=== PATIENT | male | born 1985 | race Caucasian/White ===

== ENCOUNTER 2017-02-24 18:35 | Emergency (ER) | payer OTHER ==
--- NOTE | ~2017-02-24 | CT71 ---
[facility] A Service of [facility] RADIOLOGY TEXT RESULTS PATIENT: DIANELYS PEPPER LOCATION: [facility] : [birth year] UNIT #: [id number] AGE: [address]: Lion García MD SEX: M ORDER DR: [id number] [facility] [address] [place], [place] [address] [id number] MR#: [id number] Acc #: [id number] NAME: DIANELYS PEPPER : 1985 SEX: M STUDY DATE/TIME: 02/24/2017 20:29 UNIT: [facility] ROOM: STUDY DESCRIPTION: CT Head Wo Contrast Attending Physician: Lion García M.D. Ordering Physician: Lion García M.D. Primary Care Physician: No Primary Care Physician MEDICAL IMAGING REPORT This report is preliminary unless electronic signature is present EXAM Head CT without contrast 02/24/2017 HISTORY Altered mental status today fell off chair hit head, generalized headache and confusion beginning today. FINDINGS Multiple axial images were obtained from the skull base to vertex without intravenous contrast administration. This CT exam was performed with one or more of the following radiation dose reduction techniques: automatic control, adjustment of mA and/or kV according to patient size, and iterative reconstruction. The ventricles are normal in size, shape and position. There is no midline shift. There is no mass or mass effect, hemorrhage or acute infarct. There is an air-fluid level in the right maxillary sinus characteristic of right maxillary sinusitis. IMPRESSION 1. No acute intracranial abnormality. 2. Right maxillary sinusitis Dictated by... Jersey Osborne M.D. THIS IS AN ELECTRONICALLY VERIFIED REPORT Jersey Osborne M.D. at 02/25/2017 2:14 PM BRENDA/kumar TD: 02/24/2017 23:23 JOB #: [id number] MEDICAL IMAGING REPORT Page 1 of 1 COPY
[2017-02-24 20:55] LABS: AMPHETAMINE NEG (NEG); BARBITURATES NEG (NEG); BENZODIAZEPINES NEG (NEG); COCAINE NEG (NEG); MARIJUANA POS (NEG); OPIATES NEG (NEG); TRICYCLIC ANTIDEPRESSANTS NEG (NEG); U METHADONE NEG (NEG)
[2017-02-24 21:41] LABS: BLOOD UREA NITROGEN 14 mg/dL (9-23); BUN/CREATININE RATIO 15.55; CALCIUM SERUM 8.4 mg/dL (8.4-10.2); CARBON DIOXIDE 26 mmol/L (22-31); CHLORIDE 107 mmol/L (100-111); CREATININE SERUM 0.9 mg/dL (0.6-1.4); GLOM FILT RATE Estimated 113.4 mL/min (>60); GLUCOSE FASTING 89 mg/dL (70-110); SODIUM 141 mmol/L (135-145)
[2017-02-24 21:43] LABS: ALCOHOL BLOOD <5 mg/dL (0); POTASSIUM 2.9 mmol/L (3.5-5.1)
== END 2017-02-25 02:55 ==
LOC: CED 18:35
PROVIDERS: Emergency Medicine
DX: F99 Mental disorder, not otherwise specified (principal); E87.6 Hypokalemia; F17.210 Nicotine dependence, cigarettes, uncomplicated
CPT/HCPCS: 36415; 70450; 80048; 80307; 99284; 99285; G0480

== ENCOUNTER 2017-02-24 21:00 | Inpatient (IN) | payer OTHER ==
--- NOTE | ~2017-02-24 | DS ---
Unit #: [id number] #: [id number] Patient: DIANELYS PEPPER [id number] [facility] [address] [place] [address] [id number] I MR#: [id number] NAME: DIANELYS PEPPER ROOM: [facility]5 Age: 31 Sex: M Admission Date: 02/25/2017 : 1985 Discharge Date: 03/02/2017 Attending Physician: Jose Villeda M.D. Primary Care Physician: Primary Care Physician No DISCHARGE SUMMARY IDENTIFYING DATA Mr. Pepper is a 31-year-old, single, white male, who is a resident of [place], [place], and was transferred to us from [facility]. DISCHARGE DIAGNOSES Psychiatric: Schizoaffective disorder, bipolar type, most recent episode manic with psychosis. Medical: None. Stressors: Moderate psychosocial stressors. HISTORY OF PRESENT ILLNESS Please see initial psychiatric evaluation for details. PAST PSYCHIATRIC HISTORY Please see initial psychiatric evaluation for details. PAST MEDICAL HISTORY Please see initial psychiatric evaluation for details. HOSPITAL COURSE The [facility] and was oriented to the hospital environment. Routine p.r.n. medications were initiated. Upon initial presentation, the patient was seen to be acutely psychotic, agitated, hostile, paranoid, delusional indicated needed physical management and p.r.n. medications to be given and he was started on Thorazine; however, he was not showing any therapeutic response and was pacing up all night long in the sheikh, yelling and screaming and demanding to leave the hospital, showing poor insight into his situation and as such, Thorazine was changed to Seroquel and despite me having him on Seroquel t.i.d., he was not showing any therapeutic response and has needed p.r.n. medications just to keep him and others around him safe and as such, Seroquel was then increased further as he was just not able to sleep at night as well. He was taking the medications regularly. When increased his Seroquel, he was finally able to settle down and get some sleep and as such, it was decided that he will be discharged home and will continue treatment on an outpatient basis. DISCHARGE MEDICATIONS Seroquel 100 mg in the morning and in the afternoon, and 600 mg at bedtime and trazodone 100 mg at bedtime. Unit #: [id number] #: [id number] Patient: DIANELYS PEPPER DISCHARGE CONDITION Stable. PROGNOSIS Fair. Dictated by... Sindy Maciel/christopher TD: 03/02/2017 07:08 JOB #: [id number] DISCHARGE SUMMARY Page 1 of 1 X Jose Villeda MD X DISCHARGE SUMMARY
--- NOTE | ~2017-02-24 | PN ---
Unit #: [id number] #: [id number] Patient: DIANELYS PEPPER [id number] [facility] [address] [place] [address] [id number] I MR#: [id number] NAME: DIANELYS PEPPER ROOM: [facility]5 Age: 31 Sex: M Admission Date: 02/25/2017 : 1985 Attending Physician: Jose Villeda M.D. Admitting Physician: Jose Villeda M.D. Primary Care Physician: Primary Care Physician Sera ZUÑIGA PROGRESS NOTES DATE 02/28/2017 DISCUSSION Mr. Pepper is a 31-year-old, white male with mood disorder and psychosis who was seen today and chart was reviewed and case was discussed with the staff who reports the patient has been quite disorganized and with karen like symptoms and has been up all night long and has been hovering and screaming and yelling and cursing and when confronted, he was refusing to take any responsibility and was seen to be very paranoid, delusional, refusing to talk to me stating that I have camera on my phone and things are being recorded and that he just needs to get out of here and then was seen to be starting to get agitated and aggressive and hostile as such intramuscular injection of Haldol had to be given and we will continue to monitor his response. We will also adjust his medication and change his Thorazine to Seroquel. We will monitor response. Dictated by... Sindy Maciel/adolfo TD: 03/01/2017 02:10 JOB #: [id number] [facility] PROGRESS NOTES Page 1 of 1 X Jose Villeda MD PROGRESS NOTE
--- NOTE | ~2017-02-24 | PN ---
Unit #: [id number] #: [id number] Patient: DIANEYLS PEPPER [id number] [facility] [address] [place] [address] [id number] I MR#: [id number] NAME: DIANELYS PEPPER ROOM: [facility]5 Age: 31 Sex: M Admission Date: 02/25/2017 : 1985 Attending Physician: Jose Villeda M.D. Admitting Physician: Jose Villeda M.D. Primary Care Physician: Primary Care Physician Sera MCKEON NOTES DATE 02/27/2017 DISCUSSION Mr. Pepper is a 31-year-old, white male with mood disorder and psychosis was seen today and chart was reviewed and case was discussed with the staff who reported the patient has been up all night long has been pacing the hallways and as soon as he saw me he started coming to me asking me that he is ready to leave and was seen to have pressured speech, flight of ideas and was having significant difficulty comprehending as now tolerating that he is ready yet, he would state that he is just going to go pack up his stuff and then will come back and ask me all over gain what time and I will tell him that as soon as he knew about his discharge planning we will let go. He once again would say that he is going to go and get his stuff ready and would rather get excited about that and was having some difficulty comprehending. Was seen to exhibit out of control looseness of association, and flight of idea and bizarre behavior and remains impulsive and irritable and danger to himself with acute psychosis and cognitive impairment and such we will maintain him on his current medications and level of precaution while monitoring his response and make further adjustments as needed. Dictated by... Sindy Maciel/adolfo TD: 02/28/2017 01:01 JOB #: [id number] [facility] PROGRESS NOTES Page 1 of 1 X Jose Villeda MD PROGRESS NOTE
--- NOTE | ~2017-02-24 | PN ---
Unit #: [id number] #: [id number] Patient: DIANELYS PEPPER [id number] [facility] [address] [place] [address] [id number] I MR#: [id number] NAME: DIANELYS PEPPER ROOM: [facility]5 Age: 31 Sex: M Admission Date: 02/25/2017 : 1985 Attending Physician: Jose Villeda M.D. Admitting Physician: Jose Villeda M.D. Primary Care Physician: Primary Care Physician Sera ZUÑIGA PROGRESS NOTES DATE March 01, 2017 DISCUSSION Mr. Pepper is a 31-year-old white male, who was seen today and chart was reviewed and the case was discussed with the staff. He has been anxious, irritable, impulsive, restless, pacing the hallways, and hyperactive, and remains somewhat disorganized, agitated and hostile yesterday, and was given intramuscular injections of Haldol and Benadryl, as he has not slept in some time and he stated that he had a spiritual awakening and thanks me for helping him stating that gave him injection to help him sleep, and he had some spiritual awakening and now he is all ready to leave the hospital and his mood was irritable and he seemed to be quite disorganized. MENTAL STATUS EXAMINATION Young white male, who was casually dressed with fair personal hygiene and appears to be in no acute distress or discomfort. He was awake and alert with impaired attention and concentration. His mood is anxious with a congruent affect. His speech is fluent and tangential. His thought processes are disorganized with some looseness of associations and flight of ideas and paranoid ideations, and delusional behavior. His insight and judgment remain significantly impaired. TREATMENT PLAN 1. We will continue him on his current medications and treatment protocol, and will monitor his response to the medications, and make further adjustments as needed. 2. We will continue to followup. Dictated by... Sindy Maciel/davonte TD: 03/01/2017 11:54 JOB #: [id number] Unit #: [id number] #: [id number] Patient: DIANELYS PEPPER PEACURTIS PROGRESS NOTES Page 1 of 1 X Jose Villeda MD NOTE
--- NOTE | ~2017-02-24 | HP ---
Unit #: [id number] #: [id number] Patient: DIANELYS PEPPER [id number] [place] [address] [id number] I MR#: [id number] NAME: DIANELYS PEPPER ROOM: [facility] Age: 31 Sex: M Admission Date: 02/25/2017 : 1985 Attending Physician: Jose Villeda M.D. Admitting Physician: Jose Villeda M.D. Primary Care Physician: Primary Care Physician No HISTORY AND PHYSICAL HISTORY OF PRESENT ILLNESS The patient is a 31-year-old male admitted to [address] [place] [address] on 02/25/2017 for bipolar disorder with psychotic features. PAST MEDICAL HISTORY The patient denies. PAST SURGICAL HISTORY The patient denies. SOCIAL HISTORY He is disabled. He lives with roommates. He is unemployed. His tox screen was positive for marijuana but he denies any other substance abuse. FAMILY MEDICAL HISTORY Noncontributory. ALLERGIES No known drug allergies. CURRENT MEDICATIONS The patient is not on any home medications. REVIEW OF SYSTEMS CONSTITUTIONAL: No fever or chills. HEENT: Denies any sore throat, ear pain or runny nose. CARDIOVASCULAR: Denies chest pain, irregular heart rhythm or palpitations. CHEST: Denies shortness of breath or cough. No hemoptysis. GASTROINTESTINAL: Denies nausea, vomiting, diarrhea or chronic constipation. ENDOCRINE: Denies history of increased thirst or urination. No recent significant weight loss or gain. GENITOURINARY: Denies dysuria, frequency, or hematuria. SKIN: Denies any rashes. HEMATOLOGIC: Denies history of increased bleeding or bruising. MUSCULOSKELETAL: Denies any hot, swollen joints. No generalized muscle pain. NEUROLOGIC: Denies problems with vision or speech. No frequent, severe headaches. No numbness, tingling or weakness in any extremities. Denies loss of bladder or bowel control. PHYSICAL EXAM GENERAL: He is awake, alert and oriented in no acute distress. Unit #: [id number] #: [id number] Patient: DIANELYS PEPPER VITAL SIGNS: Temperature 98.3, heart rate 85, respiration 16, blood pressure 122/78. HEIGHT: 5'9". WEIGHT: 175 pounds. SKIN: He has multiple blisters on bilateral feet and a cut on the upper bridge of his nose. HEENT: Normocephalic. TMs not viewed. Oral and nasal passages clear. Conjunctivae clear. PERRLA. EOMs intact. NECK: Supple without lymphadenopathy or thyromegaly. HEART: Regular rate and rhythm without murmur. LUNGS: Clear. ABDOMEN: Soft, nontender. : Not done. EXTREMITIES: No evidence of cyanosis, clubbing or edema. Moves all without focal deficit. NEUROLOGICAL: Grossly within normal limits. Cranial Nerves: II: Visual delvalle are intact. III, IV AND : Extraocular movements are intact. Pupils are equal, round and reactive to light. V: Facial sensation is grossly normal. VII: Facial movements and expression are normal. VIII: Auditory acuity grossly intact. IX, X: Uvula is midline. Phonation is normal. XI: Patient shrugs shoulders and turns head normally. XII: Tongue protrudes in the midline. Sensory and Motor Function: Sensory and motor sensation is grossly normal. Motor: moves all extremities well. IMPRESSION Psychiatric admission. RECOMMENDATIONS Psychiatric per psychiatrist. MEDICAL: No contraindication to participate in facility activities. MEDICAL PROGNOSIS Good. MEDICAL CONDITION Stable. Dictated by... Juan Carlos Macedo/adolfo TD: 02/26/2017 04:00 JOB #: [id number] Unit #: [id number] #: [id number] Patient: DIANELYS PEPPER HISTORY AND PHYSICAL Page 1 of 1 X SANDRA NELSON APRN HISTORY AND PHYSICAL
--- NOTE | ~2017-02-24 | PN ---
Unit #: [id number] #: [id number] Patient: DIANELYS PEPPER [id number] [facility] [address] [place] [address] [id number] I MR#: [id number] NAME: DIANELYS PEPPER ROOM: [facility]5 Age: 31 Sex: M Admission Date: 02/25/2017 : 1985 Attending Physician: Jose Villeda M.D. Admitting Physician: Jose Villeda M.D. Primary Care Physician: Primary Care Physician Sera ZUÑIGA PROGRESS NOTES DATE 02/26/2017 DISCUSSION Mr. Ppeper is a 31-year-old, white male who was seen today and chart was reviewed and case was discussed with the staff. He has been anxious, withdrawn, irritable, impulsive, disorganized and exhibiting acute psychosis and bizarre behavior as well as poor frustration tolerance though he has been taking medications and tolerating them fairly well with no reported side effects. MENTAL STATUS EXAM Young white male who was casually dressed with fair personal hygiene, appears to be in no acute distress or discomfort. He was awake and alert with impaired attention and concentration. His mood was anxious and congruent affect. He denies any suicidal or homicidal ideation. His insight and judgement remains significantly impaired. TREATMENT PLAN 1. We will continue him on his current treatment protocol. We will monitor his response and make further adjustments as needed. 2. We will continue to follow up. Dictated by... Sindy Maciel/adolfo TD: 02/27/2017 21:07 JOB #: [id number] Unit #: [id number] #: [id number] Patient: DIANELYS PEPPER PROGRESS NOTES Page 1 of 1 X Jose Villeda MD PROGRESS NOTE
--- NOTE | ~2017-02-24 | PA ---
Unit #: [id number] #: [id number] Patient: DIANELYS PEPPER [id number] [facility] [address] [place] [address] [id number] I MR#: [id number] NAME: DIANELYS EPPPER ROOM: P125 Age: 31 Sex: M Admission Date: 02/25/2017 : 1985 Date of Assessment: Attending Physician: Jose Villeda M.D. Admitting Physician: Jose Villeda M.D. PSYCHIATRIC ASSESSMENT DATE OF SERVICE 02/25/2017. IDENTIFYING DATA Mr. Pepper is a 31-year-old single white male, who is a resident of [place], [place] and was transferred to us from [facility]. CHIEF COMPLAINT "So I can get me on my place and get out of here." HISTORY OF PRESENT ILLNESS Mr. Pepper is a 31-year-old white male, who presented to the emergency room at [facility] in acute psychotic state and bizarre behavior stating that "so I can get my own place and get out of here to get a psych eval to get information so we can, cousin brought me." When asked about why he is in disability, he responded with information about his father and and continued with inappropriate responses stating that he is diagnosed with PTSD, but he did not provide any information as to the nature of any trauma and ER has the same experience with the patient, though he was cooperative inappropriate. He was beginning to go to sleep. Few minutes after the evaluation staff left, he began to be loud and demanding something, it led to the point that ER physician had to put him on 72 hours hold. He was denying any auditory or visual hallucination. His drug screen was positive for cannabis only and he was seen to be exhibiting bizarre behavior and was seen to be a poor historian and as such, was medically cleared and transferred to us, and this morning on 02/25/2017 before I had a chance to evaluate him, staff called me stating that he has been exhibiting acute psychosis with agitation, aggression, and has been punching the kwon, urinating on the floors, and causing lot of disturbance and they had initially given him Thorazine without much benefit and as such, intramuscular injection of Haldol and Benadryl had to be given to cut down his psychosis and agitation and aggression as overall he remained a poor historian. SUBSTANCE ABUSE HISTORY The patient reports history of cannabis abuse, but denies any other drug abuse. PAST PSYCHIATRIC HISTORY The patient has had history of inpatient psychiatric hospitalization at [facility], [facility], and [facility], and review of the medical records indicate that currently he is not active in any Unit #: [id number] #: [id number] Patient: [facility], with a previous diagnosis of schizoaffective disorder, and is not seeing a psychiatrist, and is not taking any psychotropic medications. PAST MEDICAL HISTORY No acute or chronic medical illnesses. ALLERGIES No known medication allergies. PERSONAL AND SOCIAL HISTORY A 31-year-old white male, who reports that he is single, unemployed, and essentially homeless and has poor social support system. MENTAL STATUS EXAMINATION Young white male, who was casually dressed with fair personal hygiene, appears to be in no acute distress or discomfort. He was awake and alert on interaction with intact orientation to time, place, and person. His mood was anxious and depressed with congruent affect. His speech was slow and tangential. His thought processes were disorganized with some looseness of associations and flight of ideas and paranoid ideations and delusional behavior. He denies any suicidal or homicidal ideations. His insight and judgment remain significantly impaired. DIAGNOSTIC IMPRESSION Psychiatric: Schizoaffective disorder, bipolar type, most recent episode depressed, recurrent, moderate, with psychosis. Medical: None. Stressors: Moderate psychosocial stressors. TREATMENT PLAN 1. The patient has presented with history of mood disorder, and has been decompensating and will need inpatient hospitalization for safety and stabilization. We will start him back on his home medications. We will adjust the medications. We will also consider a trial of Thorazine as an antipsychotic. 2. Supportive therapy was provided to the patient. 3. Safe, structured, and nourishing environment will be provided.]. ESTIMATED LENGTH OF STAY 5 to 7 days. ABILITY TO HELP SELF Limited. WILLINGNESS TO HELP SELF The patient appears to be willing to help self. STRENGTHS 1. Communicative. 2. Cooperative. PROBLEMS 1. Chronic dysphoric symptoms. 2. Poor social support system. DISCHARGE CRITERIA This will be contingent upon the patient's ability to show resolution of his depression and psychosis and ability to stay safe to himself, Unit #: [id number] #: [id number] Patient: DIANELYS PEPPER particularly after discharge from the hospital. Dictated by... Sindy Maciel/christopher TD: 02/25/2017 14:40 JOB #: [id number] PSYCHIATRIC ASSESSMENT Page 1 of 1 X Jose Villeda MD X PSYCHIATRIC ASSESSMENT
--- NOTE | ~2017-02-24 | CO ---
Unit #: [id number] #: [id number] Patient: DIANELYS PEPPER [id number] [facility] [address] [place] [address] [id number] I MR#: [id number] NAME: DIANELYS PEPPER ROOM: [facility] Age: 31 Sex: M Admission Date: 02/25/2017 : 1985 Attending Physician: Jose Villeda M.D. Consultation Date: 02/25/2017 CONSULTATION REPORT ORDERING PROVIDER Dr. Villeda. REASON FOR CONSULT Sores and swelling on his feet. SUBJECTIVE The patient reports that he has been walking around without shoes on and has developed severe blisters on his feet. He reports that they have opened up and they are pretty painful. They do drink clear fluids. He reports minimal swelling in his feet, perhaps from being on them. OBJECTIVE Multiple open blisters noted on bilateral feet, left worse than right, none appears to be infected. Clear fluid draining only. No surrounding erythema or streaking. Of note, while looking through the chart, the patient was noted to have a potassium of 2.9 prior to admission at another facility. ASSESSMENT 1. Blisters on feet. 2. Hypokalemia. PLAN To repeat potassium level in the morning and to do soaks on his feet. Dictated by... Trinidad Palacio A.P.R.N. for Sindy Gooden/christopher TD: 02/25/2017 23:58 JOB #: [id number] Unit #: [id number] #: [id number] Patient: DIANELYS PEPPER CONSULTATION REPORT Page 1 of 1 X TRINIDAD PALACIO APRN CONSULTATION REPORT
== END 2017-03-02 10:08 | disposition home or self-care (01) | DRG 885 ==
LOC: P2L 02-25 03:26 → P1S 02-25 03:26 → P2L 02-25 13:04 → P1S 02-26 11:53
DX: F25.0 Schizoaffective disorder, bipolar type (principal); E87.6 Hypokalemia; S90.829A Blister (nonthermal), unspecified foot, initial encounter
CPT/HCPCS: 84132; J1200; J1630